=== PATIENT | female | born 1945 | race Caucasian/White ===

== ENCOUNTER → 2024-03-31 15:25 | Outpatient (REF) | payer OTHER, SELFPAY | LOC: WDC 15:25 | PROVIDERS: ATTENDING PHYSICIAN Family Medicine | DX: Z12.31 Encounter for screening mammogram for malignant neoplasm of breast (principal) | CPT/HCPCS: 77063; 77067 ==

== ENCOUNTER → 2024-08-14 15:03 | Outpatient (REF) | payer OTHER, SELFPAY | LOC: RCS 15:03 | PROVIDERS: ATTENDING PHYSICIAN Family Medicine | DX: E78.00 Pure hypercholesterolemia, unspecified (principal); R53.83 Other fatigue | CPT/HCPCS: 93306 ==

== ENCOUNTER → 2025-08-11 10:29 | Outpatient (REF) | payer OTHER, SELFPAY | LOC: RAD 10:29 | PROVIDERS: ATTENDING PHYSICIAN Internal Medicine; FAMILY PHYSICIAN Family Medicine | DX: M81.0 Age-related osteoporosis without current pathological fracture (principal) | CPT/HCPCS: 77080 ==

== ENCOUNTER 2025-10-26 13:21 | Emergency (ER) | payer OTHER, SELFPAY ==
[2025-10-26 13:25] VITALS: BP 117/69
--- NOTE | 2025-10-26 14:56 | ED.GENMED ---
History of Present Illness
General
Chief Complaint: Crisis Evaluation
Time Seen by Provider: 10/26/25 14:02
History of Present Illness
History of Present Illness:
79-year-old female with history of depression presenting to the emergency department for increased depressive symptoms. Patient notes for the past 3 months she has been struggling with depression and loneliness. She has been working with her
primary care doctor, started on Zoloft, however does not feel much of an improvement. She also works with a therapist, however has had difficulty getting into see a psychiatrist. Notes often that when she goes to bed, she does not want to wake up,
however denies any intention to harm herself. Denies additional acute medical complaints.
Past History
Past History
ED Past Medical History: None
ED Past Surgical History: Orthopedic
Social History
Tobacco: Non-smoker
Phy Exam
Physical Exam
Physical Exam:
General: Well-appearing, no clinical signs of dehydration, nontoxic and in no acute distress
HEENT: protecting airway
Neck: appears supple
CV: Normal heart rate
Resp: No accessory muscle use, no increased work of breathing
Abd: No distention
Extremities: No deformities, no swelling
Neuro: alert, no focal neurologic deficit
: deferred
Rectal: deferred
Psych: Normal affect
Skin: Intact
Course
Orders/Labs/Results
Orders:
Orders
10/26/25 13:30
Crisis Consult Urgent
Reason for Consult: depression
Vital Signs
Initial and Last Documented VS:
Initial Vital Signs
Temp Pulse Resp BP Pulse Ox
97.9 F 77 20 117/69 97
10/26/25 13:25 10/26/25 13:25 10/26/25 13:25 10/26/25 13:25 10/26/25 13:25
Last Documented Vital Signs
Temp Pulse Resp BP Pulse Ox
97.9 F 77 20 117/69 97
10/26/25 13:25 10/26/25 13:25 10/26/25 13:25 10/26/25 13:25 10/26/25 14:56
MDM/Problems Addressed
MDM/Problems Addressed:
79-year-old female with depression presenting for increased depressive symptoms. Vital signs are normal.
On dam patient resting comfortably, no acute distress. Patient denies any active suicidal thoughts or intention, no plan. Notes increasing hopelessness and loneliness with frustration over trying to get into see a psychiatrist. Patient seen and
evaluated by crisis team. No present indication for 302 or inpatient placement. Patient would like to see a psychiatrist over her medications, however not feasible at this time. Outpatient resources provided to patient. Ultimately feel stable
for discharge with continued outpatient follow-up for her depression. Return precautions discussed
*Pulse Oximetry
SaO2: 97
Oxygen Mode of Delivery: Room air
Patient hypoxic: no
*Critical Care Note
Total Time (30-74mins, 75-104mins- exclusive of procedures): Not Applicable
ED Attending Note
-
Portions of this chart may have been created with voice recognition software.� Occasional wrong word or��sound alike� substitutions may have occurred due to the inherent limitations of voice recognition software.
Discharge Plan
Departure
Patient Disposition: Home (Routine Discharge)
Date of Disposition: 10/26/25
Time of Disposition: 14:56
Patient with high blood pressure during this ER visit?: No
Condition: Good
Discharge Problem:
Depression
Instructions: Depression, Adult (DC)
Prescriptions:
No Action
hydrocodone-acetaminophen [[place]] 1 EACH tablet
1 ea PO Q8 PRN (Reason: Pain) Qty: 10 0RF
Referrals:
[facility] [Outside]
Lola Cook MD [Family Provider, [facility]]
Activity Restrictions/Additional Instructions:
You were seen in the emergency department for depression
You were seen by our crisis team and provided outpatient resources
Please follow-up closely with your primary care physician and your therapist.
Return to the emergency department for any worsening of your symptoms, or any development of chest pain, difficulty breathing, abdominal pain with persistent vomiting and inability to tolerate food or liquid by mouth (concern for dehydration),
weakness, headache or confusion, fever greater than 100.4, or any additional symptoms that are concerning to you.
Thank you for choosing [facility].
Interventions
Interventions:
*General Assessment Last Done: 10/26/25 13:25
*Neglect/Abuse Screening Last Done: 10/26/25 13:25
*ED COVID-19 Vaccine History Last Done: 10/26/25 13:38
*ED Influenza Vaccine History Last Done: 10/26/25 13:38
[facility] Risk Assessment Tool Last Done: 10/26/25 13:37
*Risk Screen - Suicide (C-SSRS) Last Done: 10/26/25 13:29
ED-Psychological Assessment Last Done: 10/26/25 13:47
Discharge Date and Time
Print Language: CITIZEN [place]
== END 2025-10-26 15:02 | disposition home or self-care (01) ==
LOC: EMR 13:21
PROVIDERS: EMERGENCY PHYSICIAN Student in an Organized Health Care Education/Training Program; FAMILY PHYSICIAN Family Medicine
DX: F32.A Depression, unspecified (principal)
CPT/HCPCS: 99283